=== PATIENT | female | born 1955 | race Caucasian/White ===

== ENCOUNTER 2021-09-03 11:32 | Inpatient (IN) | payer SELFPAY ==
[2021-09-03] MEDS ORDERED: Aspirin 325 MG TAB ONE (12:25)
[2021-09-03 12:51] LABS: #Basophils 0.1 10x3/uL (0.0-0.2); #Eosinphils 0.1 10x3/uL (0.0-0.5); #Monocytes 0.6 10x3/uL (0.0-1.1); %Eosinophils 1.8 % (0.0-6.0); %Lymphocytes 23.8 % (18.0-47.0); %Monocytes 11.3 % (0.0-10.0); %Neutrophils 61.9 % (40.0-75.0); Hemoglobin 12.9 g/dL (12.0-15.5); Mean Corpuscular HGB CONC 31.5 g/dL (32.0-36.0); Mean Corpuscular Hemoglobin 31.2 pg (27.0-33.0); Mean Platelet Volume 10.8 fl (7.4-10.4); Platelet Count 177 10x3/uL (150-450); RBC Distribution Width 14.7 % (11.5-14.5); Red Blood Cell (RBC) Count 4.13 10x6/uL (3.90-5.03); White Blood Cell (WBC) Count 4.9 10x3/uL (3.5-10.5)
[2021-09-03 13:01] LABS: ALT (SGPT) 24 U/L (8-55); AST (SGOT) 19 U/L (5-34); Alkaline Phosphatase 56 U/L (40-110); Anion Gap 16 mmol/L (10-20); BUN (Urea Nitrogen) 62 mg/dL (9.8-20.1); Bilirubin, Total 0.3 mg/dL (0.2-1.2); CK (CPK) 148 U/L (29-168); Calc. Creatinine Clearance 0 mL/min (70-130); Calcium 8.6 mg/dL (7.8-10.44); Carbon Dioxide 26 mmol/L (23-31); Chloride 102 mmol/L (98-107); Globulin 2.4 g/dL (2.4-3.5); Glucose 98 mg/dL (80-115); Lipase 31 U/L (8-78); Potassium 5.3 mmol/L (3.5-5.1); Protein, Total 6.4 g/dL (5.8-8.1); Sodium 139 mmol/L (136-145)
[2021-09-03 13:24] LABS: CKMB 2.4 ng/mL (0-6.6)
[2021-09-03] MEDS ORDERED: traMADol HCl 50 MG TAB PO PRN (13:55)
[2021-09-03] MEDS ORDERED: Dextrose 5% in Water 1,000 ML IV PRN (13:56)
[2021-09-03] MEDS ORDERED: Ondansetron PF 4 MG/2 ML Vial IVP PRN (13:56)
[2021-09-03] MEDS ORDERED: Dextrose 50% Abboject 50 ML SYRINGE SLOW IVP PRN (13:56)
[2021-09-03 16:26] VITALS: BMI 53.7
[2021-09-03] MEDS ORDERED: Enoxaparin Sodium 30 MG/0.3 ML SYRINGE SC SCH (17:00)
[2021-09-03 17:28] LABS: Troponin I 0.068 ng/mL (< 0.028)
[2021-09-03] MEDS: Lactated Ringer's 1,000 ML IV SCH (18:15)
[2021-09-03 19:31] LABS: Troponin I 0.059 ng/mL (< 0.028)
[2021-09-03] MEDS: Mometasone/Formoterol 200/5 60 PUFF INH SCH (19:42)
[2021-09-03] MEDS ORDERED: Nitroglycerin 0.4 MG TAB (25 Tab Bottle) SL PRN (20:06)
[2021-09-03] MEDS ORDERED: Nitroglycerin 0.4 MG TAB (25 Tab Bottle) ONE (20:32)
[2021-09-03] MEDS: Nitroglycerin 2% Ointment 1 INCH/1 GM Packet TOP SCH (20:47)
[2021-09-03] MEDS ORDERED: diphenhydrAMINE 25 MG CAP PO SCH (21:00)
[2021-09-03 22:53] LABS: Troponin I 0.066 ng/mL (< 0.028)
[2021-09-04] MEDS: Lactated Ringer's 1,000 ML IV SCH (01:11)
[2021-09-04] MEDS: Gabapentin 300 MG CAP PO SCH ×3 (02:41→21:41)
[2021-09-04] MEDS: Nitroglycerin 2% Ointment 1 INCH/1 GM Packet TOP SCH ×4 (05:04→22:17)
[2021-09-04] MEDS: Levothyroxine Sodium 75 MCG TAB PO SCH (05:04)
[2021-09-04 05:05] LABS: #Basophils 0.1 10x3/uL (0.0-0.2); #Eosinphils 0.1 10x3/uL (0.0-0.5); #Monocytes 0.5 10x3/uL (0.0-1.1); #Neutrophils 3.8 10x3/uL (1.5-8.4); %Basophils 1.2 % (0.0-2.0); %Eosinophils 1.5 % (0.0-6.0); %Neutrophils 71.9 % (40.0-75.0); Hemoglobin 12.5 g/dL (12.0-15.5); Mean Corpuscular HGB CONC 31.4 g/dL (32.0-36.0); Mean Corpuscular Hemoglobin 30.6 pg (27.0-33.0); Mean Corpuscular Volume 97.5 fl (81.6-98.3); Mean Platelet Volume 10.7 fl (7.4-10.4); Platelet Count 182 10x3/uL (150-450); RBC Distribution Width 14.7 % (11.5-14.5); Red Blood Cell (RBC) Count 4.08 10x6/uL (3.90-5.03); White Blood Cell (WBC) Count 5.2 10x3/uL (3.5-10.5)
[2021-09-04 05:18] LABS: Anion Gap 15 mmol/L (10-20); BUN (Urea Nitrogen) 48 mg/dL (9.8-20.1); Calc. Creatinine Clearance 88 mL/min (70-130); Calcium 8.7 mg/dL (7.8-10.44); Carbon Dioxide 27 mmol/L (23-31); Chloride 104 mmol/L (98-107); Glucose 128 mg/dL (80-115); Potassium 5.4 mmol/L (3.5-5.1); Sodium 141 mmol/L (136-145)
[2021-09-04] MEDS: Mometasone/Formoterol 200/5 60 PUFF INH SCH ×2 (07:55→19:15)
[2021-09-04] MEDS ORDERED: Enoxaparin Sodium 30 MG/0.3 ML SYRINGE SC SCH (09:00)
[2021-09-04] MEDS: Aspirin 81 mg Enteric Coated Tablet PO SCH (09:51)
[2021-09-04] MEDS: Clopidogrel Bisulfate 75 MG TAB PO SCH (09:51)
[2021-09-04] MEDS: Cholecalciferol 1,000 UNITS (25 MCG) TAB PO SCH (09:51)
[2021-09-04] MEDS: Acetaminophen 325 MG TAB PO PRN (10:01)
[2021-09-04 11:20] LABS: Phosphorus 3.2 mg/dL (2.3-4.7)
[2021-09-04] MEDS: ALPRAZolam 0.25 MG TAB PO PRN (11:25)
[2021-09-04 12:27] LABS: SARS-CoV-2 NAA Rapid Test Not Detected (NotDetected)
[2021-09-04 13:18] LABS: Anion Gap 16 mmol/L (10-20); BUN (Urea Nitrogen) 37 mg/dL (9.8-20.1); Calc. Creatinine Clearance 123 mL/min (70-130); Calcium 8.7 mg/dL (7.8-10.44); Carbon Dioxide 25 mmol/L (23-31); Chloride 106 mmol/L (98-107); Glucose 128 mg/dL (80-115); Sodium 142 mmol/L (136-145)
[2021-09-04] MEDS ORDERED: Iopamidol 370 76% 100 ML VIAL ONE (14:54)
[2021-09-04] MEDS ORDERED: Gabapentin 300 MG CAP PO SCH (15:00)
[2021-09-04 16:27] LABS: Calcium, Ionized (arterial) 1.17 mmol/L (1.12-1.30); Puncture Site RRA
[2021-09-04 16:31] LABS: pH, Arterial 7.25 (7.35-7.45)
[2021-09-04 16:32] LABS: Actual Bicarbonate (HCO3a) 28.3 mEq/L (22-28); CO2 Tension 66.7 mmHg (35.0-45.0); O2 Tension (PaO2), arterial 69.1 mmHg (> 80.0)
[2021-09-04 16:47] LABS: Carboxyhemoglobin (COHb) 0.5 gm% (0.0-3.0); Potassium - ABG Lab 4.9 mmol/L (3.70-5.30)
[2021-09-04 16:50] LABS: Actual Bicarbonate (HCO3a) 25.6 mEq/L (22-28); Base Excess (BEa) -1.3 mEq/L (-2.0 to +3.0); CO2 Tension 52.7 mmHg (35.0-45.0); Hemoglobin (Hb) 12.2 g/dL (12.0-16.0); O2 Tension (PaO2), arterial 82.9 mmHg (> 80.0); pH, Arterial 7.31 (7.35-7.45)
[2021-09-04 16:51] LABS: ALV-art Gradient 243.375 mmHg (0-20); Calcium, Ionized (arterial) 1.17 mmol/L (1.12-1.30); Carboxyhemoglobin (COHb) 0.9 gm% (0.0-3.0); Potassium - ABG Lab 4.7 mmol/L (3.70-5.30); Puncture Site RRA
[2021-09-04 18:55] LABS: Bilirubin Neg (Negative); Blood, Urine Negative (Negative); Clarity Clear (Clear); Glucose, Urine (Dipstick) Normal (Negative); Ketone, Urine Negative (Negative); Leukocyte Negative (Negative); Nitrite Negative (Negative); Protein, Urine (Dipstick) 15 mg/dl (Neg-Trace); Urobilinogen Normal mg/dL (Less than 2)
[2021-09-04 19:14] LABS: Bacteria/HPF None Seen HPF (None Seen); RBC/HPF None Seen HPF (0-3); WBC/HPF 0-3 HPF (0-3)
[2021-09-04 21:14] LABS: SARS-CoV-2 PCR by NAA Not Detected (NotDetected)
[2021-09-04] MEDS: Amitriptyline HCl 25 MG TAB PO SCH (21:42)
[2021-09-05] MEDS: Acetaminophen 325 MG TAB PO PRN ×4 (01:15→20:40)
[2021-09-05] MEDS: Nitroglycerin 2% Ointment 1 INCH/1 GM Packet TOP SCH ×3 (03:10→20:12)
[2021-09-05 05:23] LABS: Phosphorus 2.2 mg/dL (2.3-4.7)
[2021-09-05] MEDS: Levothyroxine Sodium 75 MCG TAB PO SCH (05:54)
[2021-09-05] MEDS: Mometasone/Formoterol 200/5 60 PUFF INH SCH ×2 (07:44→20:40)
[2021-09-05] MEDS: Enoxaparin Sodium 40 MG/0.4 ML SYRINGE SC SCH (08:45)
[2021-09-05 08:46] LABS: Anion Gap 12 mmol/L (10-20); BUN (Urea Nitrogen) 21 mg/dL (9.8-20.1); Calc. Creatinine Clearance 170 mL/min (70-130); Calcium 9.1 mg/dL (7.8-10.44); Carbon Dioxide 30 mmol/L (23-31); Chloride 104 mmol/L (98-107); Glucose 118 mg/dL (80-115); Potassium 4.9 mmol/L (3.5-5.1); Sodium 141 mmol/L (136-145)
[2021-09-05] MEDS: Cholecalciferol 1,000 UNITS (25 MCG) TAB PO SCH (08:46)
[2021-09-05] MEDS: Furosemide 40 MG TAB PO SCH (08:46)
[2021-09-05] MEDS: Gabapentin 300 MG CAP PO SCH ×2 (08:46→20:32)
[2021-09-05] MEDS: Clopidogrel Bisulfate 75 MG TAB PO SCH (08:49)
[2021-09-05] MEDS: Aspirin 81 mg Enteric Coated Tablet PO SCH (08:50)
[2021-09-05 13:50] LABS: ALV-art Gradient 204.025 mmHg (0-20); Base Excess (BEa) -0.4 mEq/L (-2.0 to +3.0)
[2021-09-05] MEDS: HumaLOG 300 UNITS/3 ML VIAL SC PRN ×2 (13:51→20:40)
[2021-09-05] MEDS ORDERED: predniSONE 20 MG TAB PO SCH (15:30)
[2021-09-05] MEDS ORDERED: Azithromycin 250 MG TAB PO SCH (16:00)
[2021-09-05] MEDS: metFORMIN 500 MG TAB PO SCH (17:23)
[2021-09-05] MEDS: Diclofenac 1% 100 GM GEL TP SCH ×2 (17:24→20:38)
[2021-09-05] MEDS: Amitriptyline HCl 25 MG TAB PO SCH (20:32)
[2021-09-05] MEDS: ALPRAZolam 0.25 MG TAB PO PRN (20:32)
[2021-09-05] MEDS: Rosuvastatin 20 MG TAB PO SCH (20:58)
[2021-09-06] MEDS: Levothyroxine Sodium 75 MCG TAB PO SCH (05:43)
[2021-09-06 06:02] LABS: Anion Gap 13 mmol/L (10-20); BUN (Urea Nitrogen) 19 mg/dL (9.8-20.1); Calc. Creatinine Clearance 166 mL/min (70-130); Calcium 8.9 mg/dL (7.8-10.44); Carbon Dioxide 29 mmol/L (23-31); Chloride 103 mmol/L (98-107); Glucose 183 mg/dL (80-115); Sodium 140 mmol/L (136-145)
[2021-09-06] MEDS: Mometasone/Formoterol 200/5 60 PUFF INH SCH ×2 (07:25→21:18)
[2021-09-06] MEDS: Acetaminophen 325 MG TAB PO PRN ×2 (07:26→15:46)
[2021-09-06] MEDS: predniSONE 20 MG TAB PO SCH (08:22)
[2021-09-06] MEDS: Aspirin 81 mg Enteric Coated Tablet PO SCH (08:22)
[2021-09-06] MEDS: metFORMIN 500 MG TAB PO SCH ×2 (08:22→18:16)
[2021-09-06] MEDS: Cholecalciferol 1,000 UNITS (25 MCG) TAB PO SCH (08:23)
[2021-09-06] MEDS: Clopidogrel Bisulfate 75 MG TAB PO SCH (08:23)
[2021-09-06] MEDS: Gabapentin 300 MG CAP PO SCH ×2 (08:23→20:46)
[2021-09-06] MEDS: Azithromycin 250 MG TAB PO SCH (08:24)
[2021-09-06] MEDS: Enoxaparin Sodium 40 MG/0.4 ML SYRINGE SC SCH (08:24)
[2021-09-06] MEDS: Furosemide 40 MG TAB PO SCH (08:24)
[2021-09-06] MEDS: Lidocaine 5% Patch TD SCH ×2 (08:24→13:00)
[2021-09-06] MEDS: Diclofenac 1% 100 GM GEL TP SCH ×4 (08:25→20:45)
[2021-09-06] MEDS: HumaLOG 300 UNITS/3 ML VIAL SC PRN ×4 (08:40→20:48)
[2021-09-06] MEDS ORDERED: Lisinopril 20 MG TAB PO SCH (09:00)
[2021-09-06 12:42] LABS: Hemoglobin A1c 6.8 % (4.0-6.0)
[2021-09-06] MEDS ORDERED: HumuLIN 70/30 (300 UNITS/3 ML VIAL) SC SCH (17:00)
[2021-09-06] MEDS ORDERED: Lantus 1000 UNITS/10 ML VIAL SC SCH (17:00)
[2021-09-06] MEDS ORDERED: Amlodipine 5 MG TAB PO SCH (17:15)
[2021-09-06] MEDS: Rosuvastatin 20 MG TAB PO SCH (20:47)
[2021-09-06] MEDS: ALPRAZolam 0.25 MG TAB PO PRN (20:47)
[2021-09-06] MEDS: Amitriptyline HCl 25 MG TAB PO SCH (20:47)
[2021-09-06] MEDS: Transdermal Patch Removal TOP SCH (22:05)
[2021-09-07] MEDS: Levothyroxine Sodium 75 MCG TAB PO SCH (06:06)
[2021-09-07] MEDS: HumuLIN 70/30 (300 UNITS/3 ML VIAL) SC SCH ×2 (08:56→18:06)
[2021-09-07] MEDS: Mometasone/Formoterol 200/5 60 PUFF INH SCH ×2 (08:58→21:35)
[2021-09-07] MEDS: Azithromycin 250 MG TAB PO SCH (08:58)
[2021-09-07] MEDS: Enoxaparin Sodium 40 MG/0.4 ML SYRINGE SC SCH ×2 (08:58→09:01)
[2021-09-07] MEDS: metFORMIN 500 MG TAB PO SCH ×2 (08:59→18:06)
[2021-09-07] MEDS: predniSONE 20 MG TAB PO SCH (09:00)
[2021-09-07] MEDS: Furosemide 40 MG TAB PO SCH (09:00)
[2021-09-07] MEDS: Gabapentin 300 MG CAP PO SCH ×2 (09:00→20:15)
[2021-09-07] MEDS: Clopidogrel Bisulfate 75 MG TAB PO SCH (09:00)
[2021-09-07] MEDS: Aspirin 81 mg Enteric Coated Tablet PO SCH (09:00)
[2021-09-07] MEDS: Cholecalciferol 1,000 UNITS (25 MCG) TAB PO SCH (09:00)
[2021-09-07] MEDS ORDERED: Amlodipine 5 MG TAB PO SCH (09:00)
[2021-09-07] MEDS: Lidocaine 5% Patch TD SCH (09:01)
[2021-09-07] MEDS: Diclofenac 1% 100 GM GEL TP SCH ×4 (09:17→21:51)
[2021-09-07] MEDS ORDERED: hydrALAZINE 20 MG/ML VIAL SLOW IVP PRN (14:36)
[2021-09-07] MEDS: hydrALAZINE 25 MG TAB PO SCH ×2 (14:44→20:19)
[2021-09-07] MEDS ORDERED: Furosemide 20 MG/2 ML VIAL SLOW IVP SCH ×2 (15:00→16:45)
[2021-09-07] MEDS: Furosemide 20 MG/2 ML VIAL SLOW IVP SCH ×2 (15:05→15:06)
[2021-09-07] MEDS: Transdermal Patch Removal TOP SCH (19:28)
[2021-09-07] MEDS: ALPRAZolam 0.25 MG TAB PO PRN (20:17)
[2021-09-07] MEDS: Amitriptyline HCl 25 MG TAB PO SCH (20:17)
[2021-09-07] MEDS: Rosuvastatin 20 MG TAB PO SCH (20:17)
[2021-09-07] MEDS: Amlodipine 5 MG TAB PO SCH (20:18)
[2021-09-07] MEDS: HumaLOG 300 UNITS/3 ML VIAL SC PRN (20:20)
[2021-09-07] MEDS ORDERED: Lisinopril 20 MG TAB PO SCH (21:00)
[2021-09-07] MEDS ORDERED: Lantus 1000 UNITS/10 ML VIAL SC SCH (21:00)
[2021-09-08] MEDS: Acetaminophen 500 MG TAB PO PRN ×2 (04:02→16:51)
[2021-09-08 06:17] LABS: Anion Gap 14 mmol/L (10-20); BUN (Urea Nitrogen) 26 mg/dL (9.8-20.1); Calc. Creatinine Clearance 135 mL/min (70-130); Calcium 9.5 mg/dL (7.8-10.44); Carbon Dioxide 30 mmol/L (23-31); Chloride 102 mmol/L (98-107); Glucose 75 mg/dL (80-115); Potassium 3.8 mmol/L (3.5-5.1); Sodium 142 mmol/L (136-145)
[2021-09-08] MEDS: Levothyroxine Sodium 75 MCG TAB PO SCH (06:30)
[2021-09-08] MEDS: Mometasone/Formoterol 200/5 60 PUFF INH SCH ×2 (07:25→19:17)
[2021-09-08] MEDS: Gabapentin 300 MG CAP PO SCH ×2 (08:14→20:18)
[2021-09-08] MEDS: HumuLIN 70/30 (300 UNITS/3 ML VIAL) SC SCH ×2 (08:14→16:52)
[2021-09-08] MEDS: Hydrochlorothiazide 25 MG TAB PO SCH (08:15)
[2021-09-08] MEDS: hydrALAZINE 25 MG TAB PO SCH ×3 (08:15→20:17)
[2021-09-08] MEDS: Azithromycin 250 MG TAB PO SCH (08:15)
[2021-09-08] MEDS: predniSONE 20 MG TAB PO SCH (08:15)
[2021-09-08] MEDS: metFORMIN 500 MG TAB PO SCH ×2 (08:15→16:49)
[2021-09-08] MEDS: Furosemide 20 MG/2 ML VIAL SLOW IVP SCH (08:16)
[2021-09-08] MEDS: Amlodipine 5 MG TAB PO SCH ×2 (08:16→20:19)
[2021-09-08] MEDS: Clopidogrel Bisulfate 75 MG TAB PO SCH (08:16)
[2021-09-08] MEDS: Cholecalciferol 1,000 UNITS (25 MCG) TAB PO SCH (08:16)
[2021-09-08] MEDS: Aspirin 81 mg Enteric Coated Tablet PO SCH (08:16)
[2021-09-08] MEDS: Enoxaparin Sodium 40 MG/0.4 ML SYRINGE SC SCH (08:17)
[2021-09-08] MEDS: Diclofenac 1% 100 GM GEL TP SCH ×4 (08:18→20:21)
[2021-09-08] MEDS: Lidocaine 5% Patch TD SCH (08:18)
[2021-09-08] MEDS: ALPRAZolam 0.25 MG TAB PO PRN (16:49)
[2021-09-08] MEDS: Amitriptyline HCl 25 MG TAB PO SCH (20:18)
[2021-09-08] MEDS: Rosuvastatin 20 MG TAB PO SCH (20:18)
[2021-09-08] MEDS: Transdermal Patch Removal TOP SCH (20:26)
[2021-09-08] MEDS ORDERED: Montelukast Sodium 10 mg Tablet PO SCH (21:00)
[2021-09-09] MEDS: ALPRAZolam 0.25 MG TAB PO PRN ×2 (01:01→10:02)
[2021-09-09] MEDS: Levothyroxine Sodium 75 MCG TAB PO SCH (06:17)
[2021-09-09] MEDS: Mometasone/Formoterol 200/5 60 PUFF INH SCH (07:15)
[2021-09-09] MEDS: Acetaminophen 500 MG TAB PO PRN (08:16)
[2021-09-09] MEDS: Diclofenac 1% 100 GM GEL TP SCH ×2 (08:18→15:09)
[2021-09-09] MEDS ORDERED: Enoxaparin Sodium 40 MG/0.4 ML SYRINGE ONE (08:30)
[2021-09-09] MEDS: HumuLIN 70/30 (300 UNITS/3 ML VIAL) SC SCH (08:39)
[2021-09-09] MEDS: Enoxaparin Sodium 40 MG/0.4 ML SYRINGE SC SCH (08:40)
[2021-09-09] MEDS: Furosemide 20 MG/2 ML VIAL SLOW IVP SCH (08:41)
[2021-09-09] MEDS: Lidocaine 5% Patch TD SCH (08:41)
[2021-09-09] MEDS: Gabapentin 300 MG CAP PO SCH (08:42)
[2021-09-09] MEDS: hydrALAZINE 25 MG TAB PO SCH ×2 (08:46→15:06)
[2021-09-09] MEDS: Amlodipine 5 MG TAB PO SCH (08:47)
[2021-09-09] MEDS: Clopidogrel Bisulfate 75 MG TAB PO SCH (08:47)
[2021-09-09] MEDS: Azithromycin 250 MG TAB PO SCH (08:50)
[2021-09-09] MEDS: Aspirin 81 mg Enteric Coated Tablet PO SCH (08:50)
[2021-09-09] MEDS: Cholecalciferol 1,000 UNITS (25 MCG) TAB PO SCH (08:51)
[2021-09-09] MEDS: Hydrochlorothiazide 25 MG TAB PO SCH (08:51)
[2021-09-09] MEDS: metFORMIN 500 MG TAB PO SCH (08:51)
[2021-09-09] MEDS: predniSONE 20 MG TAB PO SCH (08:51)
[2021-09-09 16:42] VITALS: BP 132/91; TEMP 98.1
== END 2021-09-09 17:41 | disposition home or self-care (01) | DRG 189 ==
LOC: CSHERS 11:32 → CSHTELE 15:29 → INTOOBSV 15:29 → OBSVTOIN 09-04 07:33
PROVIDERS: ADMIT Hospitalist; ATTEND Family Medicine
PROC: 5A09357 Assistance with Respiratory Ventilation, Less than 24 Consecutive Hours, Continuous Positive Airway Pressure (ICD-10-PCS; principal; 2021-09-04)
DX: J96.21 Acute and chronic respiratory failure with hypoxia (principal); N17.9 Acute kidney failure, unspecified; I50.32 Chronic diastolic (congestive) heart failure; J44.1 Chronic obstructive pulmonary disease with (acute) exacerbation; E86.0 Dehydration; Z20.822 Contact with and (suspected) exposure to COVID-19; E87.5 Hyperkalemia; E11.9 Type 2 diabetes mellitus without complications; I11.0 Hypertensive heart disease with heart failure; G47.33 Obstructive sleep apnea (adult) (pediatric); F32.A Depression, unspecified; F17.210 Nicotine dependence, cigarettes, uncomplicated; E66.01 Morbid (severe) obesity due to excess calories; I25.10 Atherosclerotic heart disease of native coronary artery without angina pectoris; E03.9 Hypothyroidism, unspecified; Z79.82 Long term (current) use of aspirin; Z79.4 Long term (current) use of insulin; Z79.899 Other long term (current) drug therapy; Z79.02 Long term (current) use of antithrombotics/antiplatelets
CPT/HCPCS: 36415; 36416; 36600; 70450; 71045; 71275; 80048; 80053; 81001; 82550; 82553; 82805; 83036; 83690; 83735; 83880; 84100; 84484; 85025; 85379; 87070; 87205; 93005; 93010; 93306; 94640; 94660; 94664; 94760; J1650; J1815; J1940; J7120; J7512; J7620; Q9967; U0003; U0005

== ENCOUNTER 2024-11-12 20:43 | Emergency (ER) | payer MEDICARE, OTHER ==
[2024-11-12] MEDS ORDERED: Ketorolac Tromethamine 30 MG (1 mL) VIAL ONE (22:26)
== END 2024-11-12 23:57 | disposition home or self-care (01) ==
LOC: CSHERS 20:43
DX: M54.9 Dorsalgia, unspecified (principal); E11.9 Type 2 diabetes mellitus without complications; I10 Essential (primary) hypertension; E78.5 Hyperlipidemia, unspecified; J44.9 Chronic obstructive pulmonary disease, unspecified; Z79.899 Other long term (current) drug therapy; Z79.84 Long term (current) use of oral hypoglycemic drugs
CPT/HCPCS: 72131; 96374; 96375; 96376; J1885; J2270